=== PATIENT | female | born 1995 | race American Indian/Alaskan Native ===

== ENCOUNTER 2017-01-09 06:24 | Emergency (ER) | payer SELFPAY ==
[2017-01-09 06:28] VITALS: BP 112/81
[2017-01-09] MEDS ORDERED: PEPCID PO ONE (10:37)
--- NOTE | 2017-01-09 10:51 | Emergency Department Report ---
HPI - General Chief Complaint: Dyspnea/Respdistress Time Seen by Provider: 01/09/17 10:01 - HPI HPI: She is a 21-year-old female who presents with her father complaining of shortness of breath and coughing that started last night. The patient states she wasn't doing anything when the coughing started. Patient describes cough as nonproductive intermittent that's not relieved. Patient admits history of asthma or its inhaler use as needed for asthma attacks. Patient states she has been constantly belching since this morning. Patient denies any fever, congestion, chest pain, nausea, vomiting. ED Past Medical Hx - Past Medical History Previous Medical History?: Yes Hx Asthma: Yes - Surgical History Past Surgical History?: Yes Additional Surgical History: wisdom teeth - Social History Smoking Status: Never Smoker Substance Use Type: None - Medications Home Medications: Home Medications Medication Instructions Recorded Confirmed Last Taken Type ALBUTEROL Inhaler [ProAir HFA 2 puff IH QID PRN #1 inhalation 01/09/17 Unknown Rx Inhaler] Famotidine [Pepcid] 20 mg PO BID #10 tablet 01/09/17 Unknown Rx guaiFENesin [Robitussin] 200 mg PO Q6HR #24 tablet 01/09/17 Unknown Rx ED Review of Systems ROS: Stated complaint: SHORT OF BREATH Other details as noted in HPI Constitutional: denies: chills, fever Eyes: denies: eye pain, eye discharge, vision change ENT: denies: ear pain, throat pain Respiratory: denies: cough, shortness of breath, wheezing Cardiovascular: denies: chest pain, palpitations Endocrine: no symptoms reported Gastrointestinal: denies: abdominal pain, nausea, diarrhea Genitourinary: denies: urgency, dysuria, discharge Musculoskeletal: denies: back pain, joint swelling, arthralgia Skin: denies: rash, lesions Neurological: denies: headache, weakness, paresthesias Psychiatric: denies: anxiety, depression Hematological/Lymphatic: denies: easy bleeding, easy bruising Physical Exam - Physical Exam Vital Signs: Vital Signs 01/09/17 01/09/17 06:25 06:26 Temperature 97.3 F L 97.3 F L Pulse Rate 110 H 113 H Respiratory 18 18 Rate Blood Pressure 112/81 112/81 O2 Sat by Pulse 97 100 Oximetry Physical Exam: GENERAL: Alert and oriented x3, no apparent distress, Normal Gait, atraumatic. HEAD: Head is normocephalic and a-traumatic. EYES: Extra ocular muscles are intact. Pupils are equal, round, and reactive to light and accommodation. NOSE: Nose symetrical, Nontender,Nares appeared normal. MOUTH:Mouth is well hydrated and without lesions. Tonsils nonerythematous or swollen, Uvula midline, Tongue not elevated. Mucous membranes are moist. Posterior pharynx clear, no exudate or lesions. Patent airways. NECK: Supple. Non edematous, No lymphadenopathy or thyromegaly. LUNGS: Symetrical with respiration, No wheezing, no rales or crackles, CTAB. HEART: S1, S2 present, regular rate and rhythm without murmur, no rubs, no gallops. Non tender to palpation ABDOMEN: No organomegaly was noted,Positive bowel sounds, soft, and non- distended. . Nontender to palpation on all Quadrants, BACK: Full range of motion, no spinal tenderness, nontender to palpation. SKIN: Warm and dry, No lesions, No ulceration or induration present. ED Course Vital Signs 01/09/17 01/09/17 06:25 06:26 Temperature 97.3 F L 97.3 F L Pulse Rate 110 H 113 H Respiratory 18 18 Rate Blood Pressure 112/81 112/81 O2 Sat by Pulse 97 100 Oximetry ED Medical Decision Making - Radiology Data Radiology results: report reviewed, image reviewed Ordering Physician: GENARO SIM Date of Service: 01/09/17 Procedure(s): XR chest routine 2V Accession Number(s): [id number] cc: GENARO SIM Fluoro Time In Minutes: ROUTINE CHEST, TWO VIEWS: HISTORY: Short of breath. The trachea, heart, mediastinal contour, lung tse and bony thorax are unremarkable. IMPRESSION: Unremarkable chest x-ray. Transcribed By: TTR Dictated By: JEFF BIGGS JR, MD Electronically Authenticated By: JEFF BIGGS JR, MD Signed Date/Time: 01/09/17 1101 Critical care attestation.: If time is entered above; I have spent that time in minutes in the direct care of this critically ill patient, excluding procedure time. ED Disposition Clinical Impression: Acute bronchitis Qualifiers: Bronchitis organism: unspecified organism Qualified Code(s): J20.9 - Acute bronchitis, unspecified Disposition: DC-01 TO HOME OR SELFCARE Is pt being admited?: No Does the pt Need Aspirin: No Condition: Stable Instructions: Acute Bronchitis (ED) Additional Instructions: Appropriate rest. Drink plenty of fluids. Avoid sugars. Follow-up with the primary care physician Symptoms get worse this return to ED otherwise follow-up Prescriptions: ALBUTEROL Inhaler [ProAir HFA Inhaler] 2 puff IH QID PRN #1 inhalation PRN Reason: Shortness Of Breath Famotidine [Pepcid] 20 mg PO BID #10 tablet guaiFENesin [Robitussin] 200 mg PO Q6HR #24 tablet Referrals: PRIMARY CARE, [Primary Care Provider] - 3-[address] [facility] [place] [Outside] - 3-5 Days [facility] [Outside] - 3-5 Days [facility] [Outside] - 3-5 Days Forms: Accompanied Note, Work/School Release Form(ED) Time of Disposition: 11:33
--- NOTE | 2017-01-09 11:05 | XRay Report ---
ROUTINE CHEST, TWO VIEWS: HISTORY: Short of breath. The trachea, heart, mediastinal contour, lung tse and bony thorax are unremarkable. IMPRESSION: Unremarkable chest x-ray.
== END 2017-01-09 12:13 | disposition home or self-care (01) ==
LOC: ED 06:24
DX: J20.9 Acute bronchitis, unspecified (principal); J45.909 Unspecified asthma, uncomplicated
CPT/HCPCS: 71020; 99283